=== PATIENT | female | born 1960 | race Caucasian/White ===

== ENCOUNTER 2018-09-23 12:00 | Day surgery (SDC) | payer MEDICARE ==
[~2018-09-23] VITALS: Ht 162.6 cm; Wt 84.1 kg
[2018-09-23] VITALS (9 sets, daily range): BP systolic 130–163; BP diastolic 73–98
[2018-09-23] MEDS ORDERED: HYDR-4353 PO (12:33)
[2018-09-23] MEDS ORDERED: DULO-31 PO (12:33)
[2018-09-23] MEDS ORDERED: normal saline 1,000 ML IV SCH (12:35)
[2018-09-23] MEDS ORDERED: diphenhydrAMINE 25mg capsule PO PRN (12:35)
[2018-09-23] MEDS ORDERED: METH500T PO (12:36)
[2018-09-23] MEDS ORDERED: CHOL10002 PO (12:37)
[2018-09-23] MEDS ORDERED: ATOR20TA PO (12:38)
[2018-09-23] MEDS ORDERED: METF-438 PO (12:40)
[2018-09-23] MEDS ORDERED: ASPI81TA52 PO (12:41)
[2018-09-23] MEDS ORDERED: PIOG15TA8 PO (12:41)
[2018-09-23] MEDS ORDERED: METO-539 PO (12:43)
[2018-09-23] MEDS ORDERED: fentaNYL/PF 50MCG/1 ML 2ML syringe ONE (12:50)
[2018-09-23] MEDS ORDERED: midazolam 2 mg/2 ml injection ONE ×4 (12:50→14:08)
[2018-09-23] MEDS ORDERED: LIDOcaine 1% (10mg/ml)w/preservative injection 20ml MDV ONE (12:50)
[2018-09-23] MEDS ORDERED: iohexol 350 MG/ML 50ML vial IV ONE (12:51)
[2018-09-23] MEDS ORDERED: iohexol 350MG/ML 100ml bottle IV ONE ×2 (12:51→13:56)
[2018-09-23 13:06] LABS: BASOPHILS % (AUTO) 0.3 % (0-1); EOSINOPHILS # (AUTO) 0.2 X10'3 (0-0.9); EOSINOPHILS % (AUTO) 1.5 % (0-6); HEMATOCRIT 47.3 % (35.0-45.0); HEMOGLOBIN 15.6 g/dl (12.0-16.0); LYMPHOCYTES # (AUTO) 2.6 X10'3 (1.1-4.8); MEAN CORPUSCULAR HEMOGLOBIN 29.6 PG (27.0-31.0); MEAN CORPUSCULAR HGB CONC 33.1 g/dL (33.0-36.5); MEAN CORPUSCULAR VOLUME 89.4 FL (78-98); MEAN PLATELET VOLUME 7.9 FL (7.4-10.4); MONOCYTES # (AUTO) 0.7 X10'3 (0-0.9); MONOCYTES % (AUTO) 6.4 % (2-12); NEUTROPHILS # (AUTO) 7.3 X10'3 (1.8-7.7); NEUTROPHILS % (AUTO) 67.8 % (42-75); PLATELET COUNT 299 X10'3 (140-440); RED BLOOD COUNT 5.29 X10'6 (4.20-5.60); WHITE BLOOD COUNT 10.8 X10'3 (4.5-11.0)
[2018-09-23 13:07] LABS: ALBUMIN 3.6 G/DL (3.4-5.0); ANION GAP 9 (8-16); BLOOD UREA NITROGEN 15 MG/DL (7-18); CALCIUM 9.3 MG/DL (8.5-10.1); CHLORIDE 106 MMOL/L (99-107); CREATININE 0.79 MG/DL (0.40-0.90); GLUCOSE 175 MG/DL (70-104); MAGNESIUM 1.2 MG/DL (1.5-2.4); SODIUM 141 MMOL/L (135-145); eGFR 74 ML/MIN
[2018-09-23 13:08] LABS: POTASSIUM 4.7 MMOL/L (3.5-5.1)
[2018-09-23] MEDS ORDERED: adenosine kit for FFR above 120KG-Cath lab only IV ONE (13:30)
[2018-09-23] MEDS ORDERED: nitroGLYCERIN-Tridil 50MG/D5W 250 ML IV ONE (13:53)
[2018-09-23] MEDS ORDERED: heparin 1,000unit/ml 10ml vial 10 ML ONE (13:57)
[2018-09-23] MEDS ORDERED: tirofiban 5mg in NS 100mL 100 ML IV ONE (14:23)
[2018-09-23] MEDS ORDERED: clopidogrel 300mg tablet ONE (14:52)
[2018-09-23] MEDS ORDERED: HYDROcodone/acetaminophen 5mg/325mg tablet PO PRN (15:30)
[2018-09-23] MEDS ORDERED: normal saline 1000ml 1,000 ML IV SCH (15:30)
[2018-09-23] MEDS ORDERED: HYDROcodone/acetaminophen 10/325mg tab PO PRN (15:30)
== END 2018-09-23 19:50 | disposition home or self-care (01) ==
LOC: SSTAY O 12:00
PROVIDERS: ATTEND Internal Medicine Cardiovascular Disease
DX: I25.10 Atherosclerotic heart disease of native coronary artery without angina pectoris (principal); I10 Essential (primary) hypertension; E11.9 Type 2 diabetes mellitus without complications; E78.5 Hyperlipidemia, unspecified; I47.1 Supraventricular tachycardia; E66.9 Obesity, unspecified; Z68.32 Body mass index [BMI] 32.0-32.9, adult; Z79.899 Other long term (current) drug therapy; Z90.710 Acquired absence of both cervix and uterus; Z98.890 Other specified postprocedural states; Z79.84 Long term (current) use of oral hypoglycemic drugs; F12.90 Cannabis use, unspecified, uncomplicated; F17.210 Nicotine dependence, cigarettes, uncomplicated; Z88.0 Allergy status to penicillin; Z88.2 Allergy status to sulfonamides
CPT/HCPCS: 36415; 80048; 82948; 83735; 85025; 85610; 93005; 93458; 93571; 99152; 99153; C1725; C1757; C1769; C1874; C1894; C9600; J0153; J1644; J2001; J2250; J3010; J3246; J7030; Q0163; Q9967; A4620; A6258; C1760; J3490

== ENCOUNTER 2018-10-14 10:40 | Day surgery (SDC) | payer MEDICARE ==
[~2018-10-14] VITALS: Ht 162.6 cm; Wt 84.8 kg
[2018-10-14] VITALS (9 sets, daily range): BP systolic 91–169; BP diastolic 55–94
[~2018-10-14 10:40] MED LIST: ASPI81TA52 PO; ATOR20TA PO; CHOL10002 PO; DULO-31 PO; HYDR-4353 PO; METF-438 PO; METH500T PO; METO-539 PO; PIOG15TA8 PO
[2018-10-14] MEDS ORDERED: diphenhydrAMINE 25mg capsule PO PRN (11:10)
[2018-10-14] MEDS ORDERED: normal saline 1,000 ML IV SCH (11:10)
[2018-10-14] MEDS ORDERED: CLOP75TA15 PO (11:39)
[2018-10-14 12:12] LABS: BASOPHILS # (AUTO) 0.1 X10'3 (0-0.2); BASOPHILS % (AUTO) 0.7 % (0-1); EOSINOPHILS # (AUTO) 0.2 X10'3 (0-0.9); EOSINOPHILS % (AUTO) 1.9 % (0-6); HEMATOCRIT 45.8 % (35.0-45.0); HEMOGLOBIN 15.3 g/dl (12.0-16.0); LYMPHOCYTES # (AUTO) 1.8 X10'3 (1.1-4.8); LYMPHOCYTES % (AUTO) 20.5 % (21-51); MEAN CORPUSCULAR HEMOGLOBIN 29.9 PG (27.0-31.0); MEAN CORPUSCULAR HGB CONC 33.3 g/dL (33.0-36.5); MEAN CORPUSCULAR VOLUME 89.8 FL (78-98); MEAN PLATELET VOLUME 7.3 FL (7.4-10.4); MONOCYTES # (AUTO) 0.5 X10'3 (0-0.9); MONOCYTES % (AUTO) 5.3 % (2-12); NEUTROPHILS # (AUTO) 6.4 X10'3 (1.8-7.7); NEUTROPHILS % (AUTO) 71.6 % (42-75); PLATELET COUNT 353 X10'3 (140-440); RED CELL DISTRIBUTION WIDTH 14.4 % (11.5-14.5)
[2018-10-14 12:13] LABS: ALBUMIN 3.7 G/DL (3.4-5.0); ANION GAP 9 (8-16); BLOOD UREA NITROGEN 14 MG/DL (7-18); BUN/CREATININE RATIO 17.9 (6.6-38.0); CALCIUM 8.9 MG/DL (8.5-10.1); CHLORIDE 107 MMOL/L (99-107); CREATININE 0.78 MG/DL (0.40-0.90); GLUCOSE 157 MG/DL (70-104); MAGNESIUM 1.4 MG/DL (1.5-2.4); POTASSIUM 4.6 MMOL/L (3.5-5.1); SODIUM 142 MMOL/L (135-145); TOTAL CARBON DIOXIDE 25.7 MMOL/L (24-32); eGFR 76 ML/MIN
[2018-10-14] MEDS ORDERED: midazolam 2 mg/2 ml injection ONE ×3 (14:39→17:02)
[2018-10-14] MEDS ORDERED: heparin 1,000unit/ml 10ml vial 10 ML ONE (14:39)
[2018-10-14] MEDS ORDERED: fentaNYL/PF 50MCG/1 ML 2ML syringe ONE ×2 (14:39→17:02)
[2018-10-14] MEDS ORDERED: LIDOcaine 1% (10mg/ml)w/preservative injection 20ml MDV ONE (14:39)
[2018-10-14] MEDS ORDERED: iohexol 350MG/ML 100ml bottle IV ONE ×2 (14:40→15:38)
[2018-10-14] MEDS ORDERED: iohexol 350 MG/ML 50ML vial IV ONE (14:40)
[2018-10-14] MEDS ORDERED: nicotine 14mg patch - 24hr TD ONE (15:05)
[2018-10-14] MEDS ORDERED: tirofiban 12.5mg in NS 250mL 250 ML IV ONE (16:26)
[2018-10-14] MEDS ORDERED: HYDROcodone/acetaminophen 5mg/325mg tablet PO PRN (18:15)
[2018-10-14] MEDS ORDERED: normal saline 1000ml 1,000 ML IV SCH (18:15)
[2018-10-14] MEDS ORDERED: ondansetron/PF 4mg/2ml inj IV PRN (18:15)
[2018-10-14] MEDS ORDERED: proCHLORperazine 10 MG/2 ml inj IV PRN (18:15)
[2018-10-14] MEDS ORDERED: HYDROcodone/acetaminophen 10/325mg tab PO PRN (18:15)
== END 2018-10-14 20:30 | disposition home or self-care (01) ==
LOC: SSTAY O 10:40
PROVIDERS: ATTEND Internal Medicine Cardiovascular Disease
DX: E11.51 Type 2 diabetes mellitus with diabetic peripheral angiopathy without gangrene (principal); I70.213 Atherosclerosis of native arteries of extremities with intermittent claudication, bilateral legs; E78.5 Hyperlipidemia, unspecified; Z88.5 Allergy status to narcotic agent; Z88.0 Allergy status to penicillin; F17.210 Nicotine dependence, cigarettes, uncomplicated; Z79.899 Other long term (current) drug therapy
CPT/HCPCS: 36415; 37186; 37226; 80048; 83735; 85025; 85610; 93005; 99152; 99153; C1725; C1757; C1769; C1876; C1894; J1644; J2001; J2250; J3010; J3246; J7030; Q0163; Q9967; A4620; A6258; C1760

== ENCOUNTER 2018-11-11 09:04 | Day surgery (SDC) | payer MEDICARE ==
[~2018-11-11] VITALS: Ht 162.6 cm; Wt 84.3 kg
[2018-11-11] VITALS (9 sets, daily range): BP systolic 102–131; BP diastolic 67–87
[~2018-11-11 09:04] MED LIST changes: +CLOP75TA15 PO
[2018-11-11] MEDS ORDERED: normal saline 1,000 ML IV SCH (09:35)
[2018-11-11] MEDS ORDERED: diphenhydrAMINE 25mg capsule PO PRN (09:35)
[2018-11-11] MEDS ORDERED: LISI2.5T2 PO (09:41)
[2018-11-11 10:35] LABS: BASOPHILS # (AUTO) 0.1 X10'3 (0-0.2); BASOPHILS % (AUTO) 0.7 % (0-1); EOSINOPHILS # (AUTO) 0.2 X10'3 (0-0.9); EOSINOPHILS % (AUTO) 1.6 % (0-6); HEMATOCRIT 40.2 % (35.0-45.0); HEMOGLOBIN 13.3 g/dl (12.0-16.0); LYMPHOCYTES # (AUTO) 1.9 X10'3 (1.1-4.8); LYMPHOCYTES % (AUTO) 19.3 % (21-51); MEAN CORPUSCULAR VOLUME 87.7 FL (78-98); MEAN PLATELET VOLUME 7.6 FL (7.4-10.4); MONOCYTES # (AUTO) 0.5 X10'3 (0-0.9); MONOCYTES % (AUTO) 4.9 % (2-12); NEUTROPHILS # (AUTO) 7.4 X10'3 (1.8-7.7); NEUTROPHILS % (AUTO) 73.5 % (42-75); PLATELET COUNT 385 X10'3 (140-440); RED BLOOD COUNT 4.59 X10'6 (4.20-5.60); RED CELL DISTRIBUTION WIDTH 13.9 % (11.5-14.5); WHITE BLOOD COUNT 10.1 X10'3 (4.5-11.0)
[2018-11-11 10:37] LABS: ALBUMIN 3.4 G/DL (3.4-5.0); ANION GAP 9 (8-16); BLOOD UREA NITROGEN 17 MG/DL (7-18); CALCIUM 8.8 MG/DL (8.5-10.1); CHLORIDE 107 MMOL/L (99-107); CREATININE 0.81 MG/DL (0.40-0.90); GLUCOSE 160 MG/DL (70-104); MAGNESIUM 1.1 MG/DL (1.5-2.4); POTASSIUM 4.7 MMOL/L (3.5-5.1); SODIUM 141 MMOL/L (135-145); TOTAL CARBON DIOXIDE 25.3 MMOL/L (24-32); eGFR 72 ML/MIN
[2018-11-11] MEDS ORDERED: LIDOcaine 1% (10mg/ml)w/preservative injection 20ml MDV ONE (11:06)
[2018-11-11] MEDS ORDERED: fentaNYL/PF 50MCG/1 ML 2ML syringe ONE ×2 (11:06→12:59)
[2018-11-11] MEDS ORDERED: iohexol 350 MG/1 ML 200ml bottle ONE (11:06)
[2018-11-11] MEDS ORDERED: heparin 1,000unit/ml 10ml vial 10 ML ONE (11:06)
[2018-11-11] MEDS ORDERED: midazolam 2 mg/2 ml injection ONE ×4 (11:07→12:59)
[2018-11-11] MEDS ORDERED: iohexol 350MG/ML 100ml bottle IV ONE (12:56)
[2018-11-11] MEDS ORDERED: proCHLORperazine 10 MG/2 ml inj IV PRN (13:50)
[2018-11-11] MEDS ORDERED: ondansetron/PF 4mg/2ml inj IV PRN (13:50)
[2018-11-11] MEDS ORDERED: acetaminophen 325mg tablet PO PRN (13:50)
[2018-11-11] MEDS ORDERED: OXAZEpam 15mg capsule PO PRN (13:50)
== END 2018-11-11 17:00 | disposition home or self-care (01) ==
LOC: SSTAY O 09:04
PROVIDERS: ATTEND Internal Medicine Cardiovascular Disease
DX: I70.211 Atherosclerosis of native arteries of extremities with intermittent claudication, right leg (principal); E11.9 Type 2 diabetes mellitus without complications; E78.5 Hyperlipidemia, unspecified; I25.118 Atherosclerotic heart disease of native coronary artery with other forms of angina pectoris; Z79.899 Other long term (current) drug therapy; Z90.710 Acquired absence of both cervix and uterus; Z98.890 Other specified postprocedural states; Z90.722 Acquired absence of ovaries, bilateral; Z79.01 Long term (current) use of anticoagulants; Z79.82 Long term (current) use of aspirin; Z88.2 Allergy status to sulfonamides; Z88.0 Allergy status to penicillin
CPT/HCPCS: 36415; 37224; 80048; 83735; 85025; 85610; 93005; 99152; 99153; C1725; C1769; J1644; J2001; J2250; J3010; J7030; Q0163; Q9967; 36245; A4620; A6258; C1760; C1894

== ENCOUNTER 2018-12-02 06:15 | Day surgery (SDC) | payer MEDICARE ==
[2018-12-02] VITALS (8 sets, daily range): BP systolic 96–139; BP diastolic 45–76
[~2018-12-02] VITALS: Ht 163.8 cm; Wt 87.5 kg
[~2018-12-02 06:15] MED LIST changes: +LISI2.5T2 PO
[2018-12-02] MEDS ORDERED: normal saline 1,000 ML IV SCH (06:45)
[2018-12-02] MEDS ORDERED: diphenhydrAMINE 25mg capsule PO PRN (06:45)
[2018-12-02 07:16] LABS: BASOPHILS # (AUTO) 0.1 X10'3 (0-0.2); BASOPHILS % (AUTO) 0.8 % (0-1); EOSINOPHILS # (AUTO) 0.2 X10'3 (0-0.9); HEMATOCRIT 40.4 % (35.0-45.0); HEMOGLOBIN 13.3 g/dl (12.0-16.0); LYMPHOCYTES % (AUTO) 22.5 % (21-51); MEAN CORPUSCULAR HEMOGLOBIN 28.1 PG (27.0-31.0); MEAN CORPUSCULAR HGB CONC 32.8 g/dL (33.0-36.5); MEAN CORPUSCULAR VOLUME 85.8 FL (78-98); MEAN PLATELET VOLUME 7.6 FL (7.4-10.4); MONOCYTES # (AUTO) 0.5 X10'3 (0-0.9); MONOCYTES % (AUTO) 5.7 % (2-12); NEUTROPHILS # (AUTO) 6.1 X10'3 (1.8-7.7); PLATELET COUNT 378 X10'3 (140-440); RED BLOOD COUNT 4.71 X10'6 (4.20-5.60); RED CELL DISTRIBUTION WIDTH 14.6 % (11.5-14.5); WHITE BLOOD COUNT 8.9 X10'3 (4.5-11.0)
[2018-12-02 07:19] LABS: ALBUMIN 3.3 G/DL (3.4-5.0); ANION GAP 6 (8-16); BLOOD UREA NITROGEN 17 MG/DL (7-18); BUN/CREATININE RATIO 18.5 (6.6-38.0); CALCIUM 8.7 MG/DL (8.5-10.1); CHLORIDE 105 MMOL/L (99-107); CREATININE 0.92 MG/DL (0.40-0.90); GLUCOSE 161 MG/DL (70-104); MAGNESIUM 1.4 MG/DL (1.5-2.4); POTASSIUM 4.5 MMOL/L (3.5-5.1); SODIUM 139 MMOL/L (135-145); TOTAL CARBON DIOXIDE 28.2 MMOL/L (24-32); eGFR 62 ML/MIN
[2018-12-02] MEDS ORDERED: heparin 1,000 UNITS/NS 500ml 500 ML ONE (07:32)
[2018-12-02] MEDS ORDERED: midazolam 2 mg/2 ml injection ONE (07:32)
[2018-12-02] MEDS ORDERED: iohexol 350 MG/1 ML 200ml bottle ONE (07:32)
[2018-12-02] MEDS ORDERED: heparin 1,000unit/ml 10ml vial 10 ML ONE (07:32)
[2018-12-02] MEDS ORDERED: LIDOcaine 1% (10mg/ml)w/preservative injection 20ml MDV ONE (07:32)
[2018-12-02] MEDS ORDERED: fentaNYL/PF 50MCG/1 ML 2ML syringe ONE (07:32)
[2018-12-02] MEDS ORDERED: LIDOcaine 2% 10ml TOPICAL JELLY (Urojet) ONE (08:25)
[2018-12-02] MEDS ORDERED: proCHLORperazine 10 MG/2 ml inj IV PRN (10:00)
[2018-12-02] MEDS ORDERED: normal saline 1000ml 1,000 ML IV SCH (10:00)
[2018-12-02] MEDS ORDERED: HYDROcodone/acetaminophen 10/325mg tab PO PRN (10:00)
[2018-12-02] MEDS ORDERED: HYDROcodone/acetaminophen 5mg/325mg tablet PO PRN (10:00)
[2018-12-02] MEDS ORDERED: ondansetron/PF 4mg/2ml inj IV PRN (10:00)
== END 2018-12-02 13:45 | disposition home or self-care (01) ==
LOC: CATH LAB 06:15
PROVIDERS: ATTEND Internal Medicine Cardiovascular Disease
DX: E11.51 Type 2 diabetes mellitus with diabetic peripheral angiopathy without gangrene (principal); I70.211 Atherosclerosis of native arteries of extremities with intermittent claudication, right leg; E66.9 Obesity, unspecified; Z68.32 Body mass index [BMI] 32.0-32.9, adult; Z88.0 Allergy status to penicillin; Z88.2 Allergy status to sulfonamides; Z79.899 Other long term (current) drug therapy; Z79.84 Long term (current) use of oral hypoglycemic drugs; Z87.891 Personal history of nicotine dependence
CPT/HCPCS: 36246; 36415; 75710; 80048; 82948; 83735; 85025; 85610; 93005; 99152; 99153; C1729; C1769; C1894; J1644; J2001; J2250; J3010; J7030; Q0163; Q9967; A4620; A6258; C1760

== ENCOUNTER 2019-01-13 11:04 | Day surgery (SDC) | payer MEDICARE ==
[2019-01-13] VITALS (8 sets, daily range): BP systolic 102–145; BP diastolic 57–88
[~2019-01-13] VITALS: Ht 162.6 cm; Wt 88.9 kg
[2019-01-13] MEDS ORDERED: diphenhydrAMINE 25mg capsule PO ONE (11:35)
[2019-01-13] MEDS ORDERED: normal saline 1000ml 1,000 ML IV ONE (11:35)
[2019-01-13] MEDS ORDERED: proCHLORperazine 10 MG/2 ml inj ONE (12:37)
[2019-01-13] MEDS ORDERED: midazolam 2 mg/2 ml injection ONE ×2 (12:37→13:46)
[2019-01-13] MEDS ORDERED: heparin 1,000unit/ml 10ml vial 10 ML ONE (12:38)
[2019-01-13] MEDS ORDERED: iohexol 350 MG/1 ML 200ml bottle ONE (12:38)
[2019-01-13] MEDS ORDERED: iohexol 350 MG/ML 50ML vial IV ONE (12:38)
[2019-01-13] MEDS ORDERED: LIDOcaine 1% (10mg/ml)w/preservative injection 20ml MDV ONE ×2 (12:38→14:34)
[2019-01-13] MEDS ORDERED: fentaNYL/PF 50MCG/1 ML 2ML syringe ONE ×2 (12:38→13:46)
[2019-01-13 12:45] LABS: BASOPHILS # (AUTO) 0.1 X10'3 (0-0.2); BASOPHILS % (AUTO) 0.8 % (0-1); EOSINOPHILS # (AUTO) 0.1 X10'3 (0-0.9); EOSINOPHILS % (AUTO) 1.5 % (0-6); HEMATOCRIT 39.4 % (35.0-45.0); HEMOGLOBIN 12.8 g/dl (12.0-16.0); LYMPHOCYTES # (AUTO) 1.6 X10'3 (1.1-4.8); LYMPHOCYTES % (AUTO) 20.9 % (21-51); MEAN CORPUSCULAR HEMOGLOBIN 26.8 PG (27.0-31.0); MEAN CORPUSCULAR HGB CONC 32.4 g/dL (33.0-36.5); MEAN CORPUSCULAR VOLUME 82.6 FL (78-98); MEAN PLATELET VOLUME 7.6 FL (7.4-10.4); MONOCYTES # (AUTO) 0.4 X10'3 (0-0.9); MONOCYTES % (AUTO) 5.6 % (2-12); NEUTROPHILS # (AUTO) 5.5 X10'3 (1.8-7.7); NEUTROPHILS % (AUTO) 71.2 % (42-75); PLATELET COUNT 325 X10'3 (140-440); RED BLOOD COUNT 4.77 X10'6 (4.20-5.60); RED CELL DISTRIBUTION WIDTH 15.5 % (11.5-14.5); WHITE BLOOD COUNT 7.7 X10'3 (4.5-11.0)
[2019-01-13 12:48] LABS: ALBUMIN 3.1 G/DL (3.4-5.0); ANION GAP 9 (8-16); BLOOD UREA NITROGEN 20 MG/DL (7-18); BUN/CREATININE RATIO 23.3 (6.6-38.0); CHLORIDE 105 MMOL/L (99-107); CREATININE 0.86 MG/DL (0.40-0.90); GLUCOSE 183 MG/DL (70-104); MAGNESIUM 1.4 MG/DL (1.5-2.4); POTASSIUM 4.7 MMOL/L (3.5-5.1); SODIUM 138 MMOL/L (135-145); TOTAL CARBON DIOXIDE 24.3 MMOL/L (24-32); eGFR 68 ML/MIN
[2019-01-13] MEDS ORDERED: LIDOcaine 2% 10ml TOPICAL JELLY (Urojet) ONE (13:57)
[2019-01-13] MEDS ORDERED: HYDROcodone/acetaminophen 5mg/325mg tablet PO PRN (17:00)
[2019-01-13] MEDS ORDERED: normal saline 1000ml 1,000 ML IV SCH (17:00)
[2019-01-13] MEDS ORDERED: HYDROcodone/acetaminophen 10/325mg tab PO PRN (17:00)
[2019-01-13] MEDS ORDERED: ondansetron/PF 4mg/2ml inj IV PRN (17:00)
[2019-01-13] MEDS ORDERED: proCHLORperazine 10 MG/2 ml inj IV PRN (17:00)
== END 2019-01-13 19:40 | disposition home or self-care (01) ==
LOC: SSTAY O 11:04
PROVIDERS: ATTEND Internal Medicine Cardiovascular Disease
DX: E11.51 Type 2 diabetes mellitus with diabetic peripheral angiopathy without gangrene (principal); I70.211 Atherosclerosis of native arteries of extremities with intermittent claudication, right leg; E78.5 Hyperlipidemia, unspecified; I25.10 Atherosclerotic heart disease of native coronary artery without angina pectoris; Z90.710 Acquired absence of both cervix and uterus; Z98.890 Other specified postprocedural states; Z87.891 Personal history of nicotine dependence; Z88.0 Allergy status to penicillin; Z88.2 Allergy status to sulfonamides
CPT/HCPCS: 36415; 37226; 75710; 80048; 83735; 85025; 85610; 93005; 99152; 99153; C1725; C1729; C1760; C1769; C1876; C1887; C1894; J0780; J1644; J2001; J2250; J3010; J7030; Q0163; Q9967; 36246; 36247; A4620; A6258; C2623

== ENCOUNTER 2020-04-05 07:41 | Day surgery (SDC) | payer MEDICARE ==
[~2020-04-05] VITALS: Ht 162.6 cm; Wt 90.1 kg
[2020-04-05] VITALS (9 sets, daily range): BP systolic 96–157; BP diastolic 70–88
[2020-04-05] MEDS ORDERED: normal saline 1,000 ML IV SCH (08:05)
[2020-04-05] MEDS ORDERED: diphenhydrAMINE 25mg capsule PO PRN (08:05)
[2020-04-05] MEDS ORDERED: SPIR25TA5 PO (08:31)
[2020-04-05] MEDS ORDERED: DICL25TA10 PO (08:31)
[2020-04-05] MEDS ORDERED: CIP750T PO (08:31)
[2020-04-05] MEDS ORDERED: ATOR10TA70 PO (08:31)
[2020-04-05] MEDS ORDERED: CYAN250010 PO (08:33)
[2020-04-05] MEDS ORDERED: GLIP10TA11 PO (08:33)
[2020-04-05] MEDS ORDERED: DOCU-148 PO (08:33)
[2020-04-05] MEDS ORDERED: ALBU18HF2 INH (08:35)
[2020-04-05] MEDS ORDERED: DULA0.75 SQ (08:35)
[2020-04-05 09:04] LABS: BASOPHILS % (AUTO) 0.4 % (0-1); EOSINOPHILS # (AUTO) 0.2 X10'3 (0-0.9); EOSINOPHILS % (AUTO) 4.6 % (0-6); HEMATOCRIT 42.3 % (35.0-45.0); HEMOGLOBIN 13.8 g/dl (12.0-16.0); LYMPHOCYTES # (AUTO) 0.5 X10'3 (1.1-4.8); LYMPHOCYTES % (AUTO) 10.2 % (21-51); MEAN CORPUSCULAR HEMOGLOBIN 27.1 PG (27.0-31.0); MEAN CORPUSCULAR HGB CONC 32.5 g/dL (33.0-36.5); MEAN CORPUSCULAR VOLUME 83.2 FL (78-98); MEAN PLATELET VOLUME 8.2 FL (7.4-10.4); MONOCYTES # (AUTO) 0.6 X10'3 (0-0.9); MONOCYTES % (AUTO) 12.2 % (2-12); NEUTROPHILS # (AUTO) 3.6 X10'3 (1.8-7.7); NEUTROPHILS % (AUTO) 72.6 % (42-75); PLATELET COUNT 229 X10'3 (140-440); RED BLOOD COUNT 5.08 X10'6 (4.20-5.60); RED CELL DISTRIBUTION WIDTH 15.3 % (11.5-14.5); WHITE BLOOD COUNT 4.9 X10'3 (4.5-11.0)
[2020-04-05] MEDS ORDERED: fentaNYL/PF 50MCG/1 ML 2ML syringe ONE (09:12)
[2020-04-05] MEDS ORDERED: iohexol 350MG/ML 100ml bottle IV ONE (09:12)
[2020-04-05] MEDS ORDERED: LIDOcaine 1% (10mg/ml)w/preservative injection 20ml MDV ONE (09:12)
[2020-04-05] MEDS ORDERED: iohexol 350 MG/ML 50ML vial IV ONE (09:12)
[2020-04-05] MEDS ORDERED: midazolam 2 mg/2 ml injection ONE (09:12)
[2020-04-05] MEDS ORDERED: heparin 1,000unit/ml 10ml vial 10 ML ONE (09:12)
[2020-04-05 09:35] LABS: ALBUMIN 3.7 G/DL (3.4-5.0); ANION GAP 12 (8-16); BLOOD UREA NITROGEN 33 MG/DL (7-18); BUN/CREATININE RATIO 16.7 (6.6-38.0); CALCIUM 8.7 MG/DL (8.5-10.1); CHLORIDE 104 MMOL/L (99-107); CREATININE 1.98 MG/DL (0.40-0.90); GLUCOSE 149 MG/DL (70-104); MAGNESIUM 1.2 MG/DL (1.5-2.4); SODIUM 139 MMOL/L (135-145); TOTAL CARBON DIOXIDE 23.3 MMOL/L (24-32); eGFR 26 ML/MIN
[2020-04-05] MEDS ORDERED: HYDROcodone/acetaminophen 10/325mg tab PO PRN (10:35)
[2020-04-05] MEDS ORDERED: ondansetron/PF 4mg/2ml inj IV PRN (10:35)
[2020-04-05] MEDS ORDERED: HYDROcodone/acetaminophen 5mg/325mg tablet PO PRN (10:35)
[2020-04-05] MEDS ORDERED: OXAZEpam 15mg capsule PO PRN (10:35)
[2020-04-05] MEDS ORDERED: proCHLORperazine 10 MG/2 ml inj IV PRN (10:35)
== END 2020-04-05 13:30 | disposition home or self-care (01) ==
LOC: SSTAY O 07:41
PROVIDERS: ATTEND Internal Medicine Cardiovascular Disease
DX: R07.9 Chest pain, unspecified (principal); I25.118 Atherosclerotic heart disease of native coronary artery with other forms of angina pectoris; I47.1 Supraventricular tachycardia; E78.5 Hyperlipidemia, unspecified; E11.9 Type 2 diabetes mellitus without complications; G47.30 Sleep apnea, unspecified; Z90.710 Acquired absence of both cervix and uterus; Z98.890 Other specified postprocedural states; Z90.721 Acquired absence of ovaries, unilateral; Z79.84 Long term (current) use of oral hypoglycemic drugs; Z79.899 Other long term (current) drug therapy; Z79.01 Long term (current) use of anticoagulants; Z79.82 Long term (current) use of aspirin; F17.290 Nicotine dependence, other tobacco product, uncomplicated; Z88.0 Allergy status to penicillin; Z95.5 Presence of coronary angioplasty implant and graft; Z88.2 Allergy status to sulfonamides; Z82.49 Family history of ischemic heart disease and other diseases of the circulatory system; Z80.8 Family history of malignant neoplasm of other organs or systems; Z80.1 Family history of malignant neoplasm of trachea, bronchus and lung; Z80.43 Family history of malignant neoplasm of testis
CPT/HCPCS: 36415; 80048; 82948; 83735; 85025; 85610; 93005; 93458; 99152; 99153; C1760; C1769; C1894; J1644; J2001; J2250; J3010; J7030; Q0163; Q9967; A6258

== ENCOUNTER 2021-02-19 14:10 | Outpatient (CLI) | payer MEDICARE ==
[~2021-02-19] VITALS: Ht 163.8 cm; Wt 96.6 kg
[~2021-02-19 14:10] MED LIST changes: +ALBU18HF2 INH; +ATOR10TA70 PO; -ATOR20TA PO; +CIPR750T14 PO; +CYAN250010 PO; +DICL25TA10 PO; +DOCU-148 PO; +DULA0.75 SQ; +GLIP10TA11 PO; -LISI2.5T2 PO; -METO-539 PO; +SPIR25TA5 PO
[2021-02-19] MEDS ORDERED: OMEP20CA16 PO (16:14)
[2021-02-19] MEDS ORDERED: NITR1PAT68 TD (16:14)
[2021-03-06] MEDS ORDERED: ringers solution, lacted 1,000 ML IV SCH (05:00)
[2021-03-06] MEDS ORDERED: vancomycin 1,500 MG in NS 300ml IV soln IV ONE (05:30)
[2021-03-06] MEDS ORDERED: famotidine 20mg tablet PO ONE (05:30)
[2021-03-06] MEDS ORDERED: clindamycin-Cleocin 900mg/D5W 50 ML IV ONE (05:30)
== END 2021-02-19 23:59 | disposition home or self-care (01) ==
LOC: PRE-OP 14:10 → EDSTATUS 03-06 10:15
PROVIDERS: ATTEND Orthopaedic Surgery
DX: Z01.818 Encounter for other preprocedural examination (principal); G56.22 Lesion of ulnar nerve, left upper limb; G56.02 Carpal tunnel syndrome, left upper limb; F41.9 Anxiety disorder, unspecified; I25.10 Atherosclerotic heart disease of native coronary artery without angina pectoris; G89.4 Chronic pain syndrome; F32.A Depression, unspecified; I10 Essential (primary) hypertension; E78.5 Hyperlipidemia, unspecified; K21.9 Gastro-esophageal reflux disease without esophagitis; E66.01 Morbid (severe) obesity due to excess calories; Z68.35 Body mass index [BMI] 35.0-35.9, adult; E11.51 Type 2 diabetes mellitus with diabetic peripheral angiopathy without gangrene; G47.30 Sleep apnea, unspecified; F17.210 Nicotine dependence, cigarettes, uncomplicated; J44.9 Chronic obstructive pulmonary disease, unspecified; Z79.01 Long term (current) use of anticoagulants; Z79.82 Long term (current) use of aspirin; Z79.84 Long term (current) use of oral hypoglycemic drugs; Z88.0 Allergy status to penicillin; Z88.2 Allergy status to sulfonamides; Z98.890 Other specified postprocedural states; Z90.710 Acquired absence of both cervix and uterus
CPT/HCPCS: J3370; J7040; J7120

== ENCOUNTER 2021-04-16 12:00 | Outpatient (CLI) | payer MEDICARE ==
[~2021-04-16 12:00] MED LIST changes: -ALBU18HF2 INH; -CIPR750T14 PO; -DICL25TA10 PO; -DOCU-148 PO; -DULA0.75 SQ; +NITR1PAT68 TD; +OMEP20CA16 PO
[2021-04-16 14:57] LABS: BASOPHILS # (AUTO) 0.1 X10'3 (0-0.2); BASOPHILS % (AUTO) 0.5 % (0-1); EOSINOPHILS # (AUTO) 0.1 X10'3 (0-0.9); EOSINOPHILS % (AUTO) 1.4 % (0-6); LYMPHOCYTES # (AUTO) 1.9 X10'3 (1.1-4.8); MEAN CORPUSCULAR HEMOGLOBIN 24.2 PG (27.0-31.0); MEAN CORPUSCULAR HGB CONC 31.5 g/dL (33.0-36.5); MEAN CORPUSCULAR VOLUME 76.7 FL (78-98); MEAN PLATELET VOLUME 7.8 FL (7.4-10.4); MONOCYTES # (AUTO) 0.6 X10'3 (0-0.9); MONOCYTES % (AUTO) 6.1 % (2-12); NEUTROPHILS # (AUTO) 7.4 X10'3 (1.8-7.7); PRE OP HEMATOCRIT 39.3 % (35.0-45.0); PRE OP HEMOGLOBIN 12.4 g/dL (12.0-16.0); PRE OP PLATELET COUNT 332 X10'3 (140-440); RED BLOOD COUNT 5.12 X10'6 (4.20-5.60); RED CELL DISTRIBUTION WIDTH 18.2 % (11.5-14.5)
[2021-04-16 15:11] LABS: PRE OP PROTIME 10.5 SECONDS (9.0-12.0)
[2021-04-16 15:13] LABS: ALBUMIN 3.4 G/DL (3.4-5.0); ALBUMIN/GLOBULIN RATIO 0.8 (1.1-1.5); ALKALINE PHOSPHATASE 107 IU/L (46-116); BLOOD UREA NITROGEN 18 MG/DL (7-18); BUN/CREATININE RATIO 12.2 (6.6-38.0); CHLORIDE 98 MMOL/L (99-107); CREATININE 1.47 MG/DL (0.40-0.90); PRE OP ALT 18 U/L (30-65); PRE OP ANION GAP 10 (8-16); PRE OP AST 11 U/L (10-37); PRE OP BILIRUB, TOTAL 0.4 MG/DL (0.0-1.0); PRE OP POTASSIUM 4.9 MMOL/L (3.4-5.1); PRE OP SODIUM 134 MMOL/L (135-145); TOTAL CARBON DIOXIDE 26.4 MMOL/L (24-32); TOTAL PROTEIN 7.5 G/DL (6.4-8.2); eGFR 36 ML/MIN
[2021-04-16 15:16] LABS: PRE OP GLUCOSE 372 MG/DL (70-104)
[2021-04-16 15:55] LABS: HEMOGLOBIN A1C > 14.0 % (4.5-6.2)
== END 2021-04-16 23:59 | disposition home or self-care (01) ==
LOC: PRE-OP 12:00 → EDSTATUS 04-17 11:00
PROVIDERS: ATTEND Orthopaedic Surgery
DX: Z01.818 Encounter for other preprocedural examination (principal); G56.22 Lesion of ulnar nerve, left upper limb; G56.02 Carpal tunnel syndrome, left upper limb; E11.51 Type 2 diabetes mellitus with diabetic peripheral angiopathy without gangrene; I10 Essential (primary) hypertension; E78.5 Hyperlipidemia, unspecified; G47.30 Sleep apnea, unspecified; I25.10 Atherosclerotic heart disease of native coronary artery without angina pectoris; F17.210 Nicotine dependence, cigarettes, uncomplicated; E11.40 Type 2 diabetes mellitus with diabetic neuropathy, unspecified; G25.81 Restless legs syndrome; M19.90 Unspecified osteoarthritis, unspecified site; E66.01 Morbid (severe) obesity due to excess calories; Z68.41 Body mass index [BMI] 40.0-44.9, adult; Z79.01 Long term (current) use of anticoagulants; Z20.822 Contact with and (suspected) exposure to COVID-19; Z98.890 Other specified postprocedural states; Z95.5 Presence of coronary angioplasty implant and graft; Z88.0 Allergy status to penicillin; Z88.2 Allergy status to sulfonamides
CPT/HCPCS: 36415; 80053; 83036; 85025; 85610; 85730; 87635; C9803

== ENCOUNTER 2022-03-30 02:18 | Emergency (ER) | payer MEDICARE ==
[~2022-03-30] VITALS: Ht 162.6 cm; Wt 86.4 kg
[2022-03-30 02:32] VITALS: BP 135/89
[2022-03-30] MEDS ORDERED: LIDOcaine 5% patch TP ONE (05:30)
== END 2022-03-30 06:39 | disposition home or self-care (01) ==
LOC: ER 02:19
DX: S86.912A Strain of unspecified muscle(s) and tendon(s) at lower leg level, left leg, initial encounter (principal); F17.200 Nicotine dependence, unspecified, uncomplicated; G89.29 Other chronic pain; F12.10 Cannabis abuse, uncomplicated; Z88.0 Allergy status to penicillin; Z88.2 Allergy status to sulfonamides; Z79.899 Other long term (current) drug therapy; Z79.1 Long term (current) use of non-steroidal anti-inflammatories (NSAID); Z79.2 Long term (current) use of antibiotics; Z79.82 Long term (current) use of aspirin; W19.XXXA Unspecified fall, initial encounter; Y93.89 Activity, other specified; Y92.89 Other specified places as the place of occurrence of the external cause; Y99.8 Other external cause status
CPT/HCPCS: 29505; 73564; 99284

== ENCOUNTER 2022-06-08 08:46 | Day surgery (SDC) | payer MEDICARE ==
[2022-06-04 16:28] LABS: BASOPHILS # (AUTO) 0.1 X10'3 (0-0.2); BASOPHILS % (AUTO) 0.5 % (0-1); EOSINOPHILS # (AUTO) 0.2 X10'3 (0-0.9); EOSINOPHILS % (AUTO) 1.9 % (0-6); LYMPHOCYTES # (AUTO) 2.5 X10'3 (1.1-4.8); LYMPHOCYTES % (AUTO) 21.4 % (21-51); MEAN CORPUSCULAR HEMOGLOBIN 24.8 PG (27.0-31.0); MEAN CORPUSCULAR HGB CONC 31.5 g/dL (33.0-36.5); MEAN CORPUSCULAR VOLUME 78.9 FL (78-98); MEAN PLATELET VOLUME 7.4 FL (7.4-10.4); MONOCYTES # (AUTO) 0.8 X10'3 (0-0.9); MONOCYTES % (AUTO) 6.9 % (2-12); NEUTROPHILS # (AUTO) 8.1 X10'3 (1.8-7.7); NEUTROPHILS % (AUTO) 69.3 % (42-75); PRE OP HEMOGLOBIN 13.9 g/dL (12.0-16.0); PRE OP PLATELET COUNT 355 X10'3 (140-440); RED BLOOD COUNT 5.58 X10'6 (4.20-5.60); RED CELL DISTRIBUTION WIDTH 21.2 % (11.5-14.5)
[2022-06-04 16:40] LABS: ALKALINE PHOSPHATASE 86 IU/L (46-116); BLOOD UREA NITROGEN 29 MG/DL (7-18); CALCIUM 9.3 MG/DL (8.5-10.1); CHLORIDE 101 MMOL/L (99-107); CREATININE 1.38 MG/DL (0.40-0.90); PRE OP ALT 22 U/L (30-65); PRE OP ANION GAP 8 (8-16); PRE OP AST 21 U/L (10-37); PRE OP BILIRUB, TOTAL 0.3 MG/DL (0.0-1.0); PRE OP GLUCOSE 122 MG/DL (70-104); PRE OP POTASSIUM 4.1 MMOL/L (3.4-5.1); PRE OP SODIUM 137 MMOL/L (135-145); TOTAL CARBON DIOXIDE 27.7 MMOL/L (24-32); TOTAL PROTEIN 8.1 G/DL (6.4-8.2); eGFR 39 ML/MIN
[~2022-06-08] VITALS: Ht 162.6 cm; Wt 85.7 kg
[~2022-06-08 08:46] MED LIST changes: +DAPA10TA PO; +SEMAGLUTIDE PO; +clindamycin-Cleocin 900mg/D5W 50 ML IV ONE; +famotidine 20mg tablet PO ONE; +ringers solution, lacted 1,000 ML IV SCH
[2022-06-08 10:26] VITALS: BP 151/87
[2022-06-08] MEDS ORDERED: fentaNYL/PF 50MCG/1 ML 2ML syringe ONE ×2 (15:39→16:11)
[2022-06-08] MEDS ORDERED: midazolam 1 mg/ML 2ml injection ONE (15:39)
[2022-06-08] MEDS ORDERED: BUPIVAcaine/PF 2.5mg/ml (0.25%) 10ml vial IJ ONE (16:10)
[2022-06-08 16:21] VITALS: BP 145/80
--- NOTE | 2022-06-08 16:21 | NUR ---
Received from OR via [facility] TO [facility] 6, accompanied by Anesthesiologist DR MORRISON and report given by Anesthesiolgist. PT PRESENT WITH PIV 20G RIGHT HAND, LR RUNNING AT 100/MLS HR, LEFT ELBOW AND WRIST DRESSING CDI, VSS. Addendum: 06/08/22 at 1635 by Pastora Olvera RN, RN Amended: Links added.
[2022-06-08 16:30] VITALS: BP 141/92
[2022-06-08 16:40] VITALS: BP 135/72
[2022-06-08 16:50] VITALS: BP 112/68
[2022-06-08 17:01] VITALS: BP 112/68
--- NOTE | 2022-06-08 17:01 | NUR ---
: ALL DISCHARGE CRITERIA HAS BEEN MET. VSS, PAIN AT A TOLERABLE LEVEL, VOIDING AND ABLE TO SAFELY AMBULATE AND TRANSFER SELF. IV TAKEN OUT WITHOUT ANY COMPLICATIONS. ALL DISCHARGE INSTRUCTIONS COVERED WITH PATIENT AND ALL QUESTIONS ANSWERED. PATIENT TAKEN OUT VIA WHEELCHAIR TO PERSONAL VEHICLE WHERE FAMILY/FRIEND DROVE PATIENT HOME. Addendum: 06/08/22 at 1710 by Pastora Olvera RN, RN Amended: Links added.
== END 2022-06-08 17:01 | disposition home or self-care (01) ==
LOC: PAS 08:46
PROVIDERS: ATTEND Orthopaedic Surgery Hand Surgery
DX: G56.22 Lesion of ulnar nerve, left upper limb (principal); M65.332 Trigger finger, left middle finger; F41.9 Anxiety disorder, unspecified; J45.909 Unspecified asthma, uncomplicated; I25.10 Atherosclerotic heart disease of native coronary artery without angina pectoris; G89.4 Chronic pain syndrome; F32.A Depression, unspecified; I10 Essential (primary) hypertension; K21.9 Gastro-esophageal reflux disease without esophagitis; E78.5 Hyperlipidemia, unspecified; E11.51 Type 2 diabetes mellitus with diabetic peripheral angiopathy without gangrene; G47.33 Obstructive sleep apnea (adult) (pediatric); M17.12 Unilateral primary osteoarthritis, left knee; E66.01 Morbid (severe) obesity due to excess calories; Z68.31 Body mass index [BMI] 31.0-31.9, adult; E11.40 Type 2 diabetes mellitus with diabetic neuropathy, unspecified; G25.81 Restless legs syndrome; Z88.0 Allergy status to penicillin; Z88.2 Allergy status to sulfonamides; Z79.899 Other long term (current) drug therapy; Z79.01 Long term (current) use of anticoagulants; Z79.82 Long term (current) use of aspirin; Z79.84 Long term (current) use of oral hypoglycemic drugs; Z98.890 Other specified postprocedural states; F12.90 Cannabis use, unspecified, uncomplicated; F17.210 Nicotine dependence, cigarettes, uncomplicated; Z90.710 Acquired absence of both cervix and uterus
CPT/HCPCS: 26055; 64718; 80053; 82948; 83036; 85025; 93005; J2250; J3010; J3490; J7030; J7120; Z7506; Z7512; A4215; A6449